=== PATIENT | male | born 1970 | race Caucasian/White ===

== ENCOUNTER → 2018-01-23 11:33 | Outpatient (CLI) | payer BC, SELFPAY ==
--- NOTE | 2018-01-23 11:40 | RAD_ITS ---
STUDY: X-RAY CHEST REASON FOR EXAM: Male, 47 years old. Productive cough. TECHNIQUE: PA and lateral views of the chest. COMPARISON: None. FINDINGS: There are right basilar streaky opacities. Normal size heart. Normal mediastinum and edenilson. Normal visualized pulmonary arteries. Normal visualized aortic arch and descending thoracic aorta. Normal visualized thoracic spine. Normal visualized ribs, clavicles, and shoulders. There is no demonstrated abnormality of the visualized soft tissue structures of the upper abdomen. RAD/Chest PA and Lateral IMPRESSION: Nonspecific right basilar streaky opacities may reflect underlying atelectasis and/or pneumonia. Electronically Signed: Debora Putnam MD at 12:31 EST Tel , Service support ,
== END ==
PROVIDERS: Family Provider Family Medicine; PCP Family Medicine; Visit Provider Otolaryngology
DX: R05 Cough (principal)
CPT/HCPCS: 71046; 87070; 87205

== ENCOUNTER 2018-01-24 01:38 | Emergency (ER) | payer BC, SELFPAY ==
[2018-01-24 01:40] VITALS: BP 186/105; PULSE 85; RESP 21; TEMP 36.7; O2SAT 99; BMI 31.4
[2018-01-24 01:44] VITALS: O2SAT 99
--- NOTE | 2018-01-24 02:03 | EKG12_ITS ---
Test Reason : CP Blood Pressure : / mmHG Vent. Rate : 079 BPM Atrial Rate : 079 BPM P-R Int : 134 ms QRS Dur : 092 ms QT Int : 356 ms P-R-T Axes : 063 -22 055 degrees QTc Int : 408 ms Normal sinus rhythm Normal ECG Confirmed by NAVDEEP COX ([id number]), subeditor GAGE ROBINS ([id number]) on 01/27/2018 1:45:29 PM Referred By: Nehemias Love Confirmed By:NAVDEEP COX
--- NOTE | 2018-01-24 02:03 | CT_ITS ---
STUDY: CTA CHEST REASON FOR EXAM: Male, 47 years old. Cough, chest pain and shortness of breath, diagnosed with pneumonia yesterday, elevated blood pressure RADIATION DOSAGE (If Supplied By Facility): CTDIvol = ( 20.88 ) mGy, DLP = ( 732.05 ) mGycm TECHNIQUE: The examination was performed with the intravenous administration of 100 ml of Isovue 370 contrast material. Post-processing of the angiographic images was performed, with multiplanar reformation and 3D reconstruction. Individualized dose optimization techniques were used for this CT. COMPARISON: Chest x-ray 01/23/2018 FINDINGS: Normal enhancement of the main pulmonary artery and right and left pulmonary arteries. Normal enhancement of the bilateral peripheral pulmonary arteries. There is no demonstrated pulmonary embolism. Normal thoracic aorta and visualized great vessels. There is no demonstrated aortic dissection. Normal heart and pericardium. Normal mediastinum. Normal hilar regions. Normal visualized trachea and bronchi. The lungs are well expanded. Broad linear parenchymal change involving the right lower lobe extending to the pleura with volume loss, minor bronchial opacification. To a lesser degree seen in the posterior medial left lower lobe and along the major fissure. There are 2 adjacent nodules in the left lower lobe periphery of 0.36 and 0.26 cm image 68 and 69 series 2. Tiny calcified nodule left lower lobe. Additional small 0.2 cm nodules in the right upper and middle lobe. Normal pleura. Normal chest wall structures. Normal osseous structures. There is a small hiatal hernia. CT/CTA Chest W/WO Contrast IMPRESSION: No demonstrated pulmonary embolism, aneurysm, leak or arterial dissection. Atelectatic changes and minor infiltrates in the right lower lobe, atelectasis, possible mild pneumonia. Multiple small nodules one of which is calcified possible granulomata. CT Follow-Up of Small Pulmonary Nodules Nodule size is average of length and width. Nodule size. Low risk patient. Non smoking history. <4mm No follow-up needed (risk of malignancy <1%) 4-6mm Follow up CT at 12 months, if unchanged, no further imaging needed. 6-8mm Initial follow up at 6-12 month, then at 18-24 months if no changes. > 8mm Follow-up CT at 3, 9, and 24 months, dynamic contrast CT, PET and /or biopsy. Nodule size. High risk patients. Smoking history. <4mm Follow-up 12 months: if unchanged, no further follow-up. 4-6mm Initial follow-up at 6-12 months,then at 18-24 months if no change. 6-8mm Initial follow-up at 3-6months, then at 9-12 and 24 months if no change. >8mm Same as for low risk patient. [employer] STATEMENT Electronically Signed: Felisa Miguel MD at 3:25 EST , Service support ,
[2018-01-24 02:15] VITALS: PULSE 75; RESP 12
[2018-01-24] MEDS: Ipratropium/Albuterol Sulfate 3 ML AMPUL.NEB INHALATION (02:15)
[2018-01-24 02:34] LABS: Absolute Lymphocyte Count 3.06 X10^3/ul (0.83-4.51); Absolute Neutrophil Count 5.2 X10^3/uL (2.0-7.7); Basophil# 0.06 X10^3/uL; Basophil% 0.6 % (0-1); Eosinophil# 0.32 X10^3/uL; Eosinophils% 3.3 % (0-5); Hematocrit 48.2 % (40-54); Lymphocyte # 3.06 X10^3/ul (4.0); Lymphocyte % 31.4 % (19-41); Mean Corp Hgb Conc 35.3 g/gl (32-36); Mean Corpuscular Hgb 33.2 pg (27.0-32.0); Mean Corpuscular Volume 94.1 fL (80-94); Mean Platelet Vol. 9.7 fl (6.2-12.0); Monocyte# 1.06 X10^3/uL; Monocyte% 10.9 % (0-10); Neutrophil % 53.5 % (47-70); POSITIVE COUNT NO; POSITIVE DIFFERENTIAL NO; POSITIVE MORPHOLOGY NO; Platelet Count 252 K/mm3 (150-450); RBC Distribution Width CV 12.7 % (11.6-14.6); RBC Distribution Width SD 42.7 fl (35.1-43.9); Red Blood Count 5.12 M/mm3 (4.6-6.2); White Blood Count 9.7 K/mm3 (4.4-11.0)
[2018-01-24 02:50] LABS: Anion Gap 9 (5-15); BUN 12 mg/dL (7-18); BUN/Creat Ratio 11.2 RATIO (10-20); Calcium,Total 8.9 mg/dL (8.5-10.1); Chloride 104 mmol/L (98-107); Creatinine, Serum 1.07 mg/dL (0.70-1.30); EST Glomerular Filtration Rate 79 mL/min (>60); Est Glom Filt Rate - Afr Amer 95 mL/min (>60); Estimated Creatinine Clearance 93.68 ml/min; Glucose 101 mg/dL (74-106); Potassium 4.2 mmol/L (3.5-5.1); Sodium Level 139 mmol/L (136-145)
--- NOTE | 2018-01-24 03:44 | ED.VISSUMM ---
- ER Visit Summary Date of Service: 01/24/18 Chief Complaint: Cough, right-sided chest pain History of Present Illness: The patient is a 47 M worsening dyspnea and cough this evening. Diagnosed with pneumonia by PCP by x-ray today. Started on Levaquin status post 1 dose. Also given Medrol Dosepak however is told by his PCP does not start until Saturday pending sputum culture. He states he did take the sputum culture to the lab today. History of hypertension, hypercholesterolemia, neuropathy on Percocet and gabapentin. He is a half pack per day smoker. He did have recent travel to [place] over a month ago along with surgery to remove a melanoma over a month ago. No history of PE. He states he is coughing up sputum. States a month ago diagnosed with ear infections pot amoxicillin and then started on the thinks may be Ceftin of ear due to symptoms not being improved. Denies history of COPD or asthma. No other complaints. Physical Examination: Temp 98, pulse 85, respiration 21, pulse ox 99 on room air General: Alert and oriented ?3, occasional coughing HEENT: Normocephalic, atraumatic. Moist mucosa membranes Neck: supple, nontender. Cardiovascular: Regular rate and rhythm, no murmurs Respiratory: Normal breath sounds, symmetric, no distress Abdomen: Soft, nontender, nondistended Extremities: Nontender, no edema, pulses intact ?4 Neuro: no focal neurological deficits. Test Results: EKG sinus rate 79, no ST or T-wave changes. CBC white count 9.7. Chemistries normal. Troponin negative. CTA chest: Mild right lower lobe pneumonia, multiple pulmonary nodules all less than 4 mm. Emergency Department Course and Treatment: Patient vital signs stable, having persistent symptoms not relieved with antibiotics initially. Reviewed x-ray as an outpatient had concerns for possible right lower lobe pneumonia. He did have recent travel along with surgery. Moderate risk Wells criteria. Discussed with patient obtaining a CTA of the chest for further rule out. Results noting confirmed right lower lobe pneumonia, no PE. There is multiple pulmonary nodules with recommended repeat CT in 1 year with smoking history. Cardiac workup was negative. He was given aerosol treatment. Discuss findings with the patient. Reviewed Gram stain was noted gram-positive cocci along with gram-positive rods with cultures pending. Discuss likely pleuritic symptoms due to his pneumonia. He has no gastric ulcers or kidney injury history. Given Toradol and continued on NSAIDs. He has Percocets at home to use. He will finish his Levaquin along with starting his Medrol Dosepak. All questions were answered. Treatment Plan: [] Disposition: Discharge Impression: 1. Community-acquired pneumonia 2. Pleuritic chest pain 3. Pulmonary nodules This note was generated with [employer] dictation software. It may contain incorrect words, spelling, and punctuation that were not noted in review of the chart prior to signing ED Disposition - Plan for ED Patient: Disposition: Home or Assisted Living Chief Complaint: Cough Diagnosis: Community acquired pneumonia, Pleuritic chest pain, Pulmonary nodules/lesions, multiple Instructions: ED Pneumonia Adult, ED Nodule Solitary Pulmonary Prescriptions: Ibuprofen 600 mg PO 4X/DAY PRN #20 tablet PRN Reason: Pain Referrals: Trace Benz III, MD [Primary Care Provider] - 3-5 Days Additional Instructions: multiple pulmonary nodules. Recommended repeat CT chest in 12 month. Tobacco cessation.
[2018-01-24] MEDS: Ketorolac 30 MG/ML Syringe IV (03:49)
[2018-01-24 03:54] VITALS: BP 147/94; PULSE 66; RESP 16; O2SAT 96
--- NOTE | 2018-01-24 03:56 | ED.RN ---
IV DC'ED, CATHETER INTACT, SMALL GAUZE DRESSING PLACED. DISCHARGE INSTRUCTIONS GIVEN TO AND REVIEWED WITH PATIENT, PATIENT DENIES QUESTIONS OR CONCERNS AND VOICES UNDERSTANDING OF DISCHARGE INSTRUCTIONS. PT AMBULATES OUT OF ROOM WITHOUT DIFFICULTY.
== END 2018-01-24 03:57 | disposition home or self-care (01) ==
PROVIDERS: Emergency Provider Emergency Medicine; Family Provider Family Medicine; PCP Family Medicine
DX: J18.9 Pneumonia, unspecified organism (principal); R07.89 Other chest pain; R91.8 Other nonspecific abnormal finding of lung field; I10 Essential (primary) hypertension; E78.00 Pure hypercholesterolemia, unspecified; G62.9 Polyneuropathy, unspecified; I73.9 Peripheral vascular disease, unspecified; Z85.820 Personal history of malignant melanoma of skin; Z79.899 Other long term (current) drug therapy; F17.200 Nicotine dependence, unspecified, uncomplicated
CPT/HCPCS: 71275; 80048; 84484; 85025; 93005; 94640; 96361; 96374; 99284; J7030; J7040; Q9967; A4216

== ENCOUNTER 2025-08-19 09:04 | Emergency (ER) | payer BC, SELFPAY ==
[2025-08-19 09:05] VITALS: BP 182/112; PULSE 78; RESP 18; TEMP 36.6; O2SAT 99; BMI 29.5
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
--- NOTE | 2025-08-19 09:49 | RAD_ITS ---
PROCEDURE: HIP, UNI W/ PELVIS 2-3 VIEWS 08/19/2025 REASON FOR EXAM: RIGHT HIP PAIN TECHNIQUE: Procedure Code: RAD Modality: DX Procedure: HIP, UNI W/ PELVIS 2-3 VIEWS Laterality: Right COMPARISON: None FINDINGS: Bones: No demonstrated fracture or suspicious osseous lesion Joints: Mild, age consistent hip and SI joint arthrosis Soft tissues: No suspicious soft tissue swelling lucent centered calcifications noted in the pelvis. Other: RAD/HIP, UNI W/ Pelvis 2-3 Views IMPRESSION: Mild, age consistent changes, no acute findings Reading Location: [id number]
[2025-08-19] MEDS: Lidocaine 5% Patch 1 PATCH TOPICAL (10:19)
[2025-08-19 11:23] VITALS: BP 162/95; PULSE 56; RESP 16; TEMP 36.6; O2SAT 97
== END 2025-08-19 11:28 | disposition home or self-care (01) ==
PROVIDERS: Emergency Provider Emergency Medicine; PCP Internal Medicine; Visit Provider Emergency Medicine
DX: S70.00XA Contusion of unspecified hip, initial encounter (principal); M54.9 Dorsalgia, unspecified; I10 Essential (primary) hypertension; Z87.891 Personal history of nicotine dependence; E78.5 Hyperlipidemia, unspecified; V89.2XXA Person injured in unspecified motor-vehicle accident, traffic, initial encounter
CPT/HCPCS: 72131; 73502; 99282